=== PATIENT | male | born 1970 | race Caucasian/White ===

== ENCOUNTER 2016-05-28 04:55 | Emergency (ER) | payer MEDICAID, OTHER ==
[~2016-05-28] VITALS: Ht 180.3 cm; Wt 97.5 kg
[2016-05-28 05:03] VITALS: BP 149/96
--- NOTE | 2016-05-28 05:08 | NUR ---
PT TAKEN TO BED 7
[2016-05-28] MEDS ORDERED: IPRATROPIUM 0.02% 0.5 MG/2.5 ML NEBU INH ONE (05:10)
[2016-05-28] MEDS ORDERED: ALBUTEROL 0.083% 2.5 MG/3 ML NEBU INH ONE (05:10)
--- NOTE | 2016-05-28 05:10 | NUR ---
45 Y/O M C/O SOB,AND COUGH X 1 DAY. DENIES ANY FEVER. PT ON BUSINESS INSIGHT AND ANALYTICS MANAGER. O2 SAT 94-95% IN RA. ER MD AT BEDSIDE EVALUATING PT.
--- NOTE | 2016-05-28 05:10 | NUR ---
Dr. Benson evaluating patient at bedside.
[2016-05-28] MEDS ORDERED: ASPIRIN 81 MG TAB.CHEW PO ONE (05:15)
--- NOTE | 2016-05-28 05:24 | NUR ---
X-Ray at bedside.
--- NOTE | 2016-05-28 05:26 | NUR ---
RT AT BEDSIDE FOR TREATMENT
[2016-05-28 06:47] VITALS: BP 124/78
--- NOTE | 2016-05-28 06:47 | NUR ---
Patient discharged with v/s stable. Written and verbal after care instructions given and explained. Patient alert, oriented and verbalized understanding of instructions. Ambulatory with steady gait. All questions addressed prior to discharge. ID band removed. Patient advised to follow up with PMD OR RETURN TO ER IF CONDITION GETS WORSE. Rx of ALBUTEROL AND AZITHROMYCIN given. Patient educated on indication of medication including possible reaction and side effects. Opportunity to ask questions provided and answered.
== END 2016-05-28 06:47 | disposition home or self-care (01) ==
LOC: MED 04:55
DX: R07.89 Other chest pain (principal); R06.02 Shortness of breath; E11.9 Type 2 diabetes mellitus without complications; F17.200 Nicotine dependence, unspecified, uncomplicated
CPT/HCPCS: 36415; 71010; 80053; 80305; 81001; 82553; 82948; 83880; 84484; 85025; 85379; 85610; 85730; 87086; 93005; 94640; 94664; 99285; J7613; J7644; Q0092

== ENCOUNTER 2020-12-14 11:58 | Emergency (ER) | payer OTHER ==
[~2020-12-14] VITALS: Ht 180.3 cm; Wt 97.3 kg
[2020-12-14 13:32] VITALS: BP 114/70
[2020-12-14] MEDS ORDERED: METF-350 PO (13:38)
--- NOTE | 2020-12-14 13:56 | NUR ---
XRAY BEDSIDE WITH PT
--- NOTE | 2020-12-14 14:00 | NUR ---
50/M presents to ED with c/o intermittent sob for 1 day. Patient states he has had worsening cold symptoms for one week, patient also has hx of DM, blood sugar upon arrival 342. Reports taking prescribed Rx of Metformin but states sugar has been continuously high, denies following up with his PCP regarding his elevated sugar. Patient denies headache, chest pain, nausea, vomiting, loss of taste or smell, weakness, urinary symptoms, or hyperglycemia symptoms. Dr. Lozoya aware of patient.
--- NOTE | 2020-12-14 15:07 | NUR ---
NOVEL COVID SWAB COLLECTED AND WALKED TO LAB.
--- NOTE | 2020-12-14 15:18 | NUR ---
EL SWAB COLLECTED AND HANDED TO TIMBER INSPECTOR.
[2020-12-14] MEDS ORDERED: INSULIN REGULAR, HUMAN 100 UNIT/ML VIAL SUBQ ONE (15:40)
--- NOTE | 2020-12-14 16:55 | NUR ---
BLOOD SUGAR RECHECKED 257.
[2020-12-14 17:03] VITALS: BP 114/70
--- NOTE | 2020-12-14 17:04 | NUR ---
Patient discharged with v/s stable. Written and verbal after care instructions given and explained. Patient verbalized understanding. Ambulatory with steady gait. All questions addressed prior to discharge. Advised to follow up with PMD.
== END 2020-12-14 17:04 | disposition home or self-care (01) ==
LOC: MED 11:58
DX: B34.9 Viral infection, unspecified (principal); E11.65 Type 2 diabetes mellitus with hyperglycemia; Z20.822 Contact with and (suspected) exposure to COVID-19; Z79.899 Other long term (current) drug therapy
CPT/HCPCS: 71045; 87426; 96372; 99284; J1815; U0003; Q0092